=== PATIENT | female | born 1975 | race Caucasian/White ===

== ENCOUNTER 2022-11-30 17:25 | Emergency (ER) | payer OTHER, SELFPAY ==
[2022-11-30 17:40] VITALS: BP 112/69; PULSE 58; RESP 18; TEMP 36.8; O2SAT 100
--- NOTE | 2022-11-30 18:03 | ED.FEMALEGU ---
HPI - Female Genitourinary General Chief complaint: Urogenital-Female Stated complaint: vaginal discharge, rash all over Source: patient and RN notes reviewed Mode of arrival: ambulatory Limitations: no limitations History of Present Illness HPI Narrative: 47 y/o female presented for multiple complaints, which she believes are related to eri. States she has chronic eri for over 10 years, and has eliminated carbs/sugar to reduce flares. States for about 3 weeks she has been treating a vaginal yeast flare with multiple OTC vaginal creams providing no relief. However she reports the large amount of vaginal drainage at the onset has now decreased, and is white and milky. Took a home test for BV which was negative. Denies urinary complaints. Reports itching all over body, including her throat, and states at times her throat feels thick. Reports toe nail fungus after painting her toenails. And reports right chest mole now has redness to the lower aspect of the mole. Denies cough, sob, wheezing, n/v/d/f/c. History of extensive abdominal surgeries. Scheduled with pcp 12/11/22. Related Data Allergies Allergy/AdvReac Type Severity Reaction Status Date / Time Sulfa (Sulfonamide Allergy Mild Rash Verified 11/30/22 18:03 Antibiotics) erythromycin base AdvReac Mild Diarrhea Verified 11/30/22 18:03 Penicillins AdvReac Mild Diarrhea Verified 11/30/22 18:03 PROCHLORPERAZINE EDISYLATE Allergy Mild Rash Uncoded 11/30/22 18:03 PROCHLORPERAZINE MALEATE Allergy Mild Rash Uncoded 11/30/22 18:03 Review of Systems Review of Systems: CONSTITUTIONAL: Denies body aches, fever, chills, or sweats. CARDIOVASCULAR: Denies chest pain, palpitations, or edema. RESPIRATORY: Denies cough or dyspnea. GASTROINTESTINAL: Denies abdominal pain, nausea, vomiting, or diarrhea. GENITOURINARY: Denies dysuria, frequency, urgency, hematuria, flank pain SKIN: Denies rash, itching, or wounds. MUSCULOSKELETAL: Denies back pain or myalgia. [facility] [place] Past Medical History Medical History (Updated 11/30/22 @ 19:33 by Nimisha Santiago, CAR FRAMER) Asthma Degenerative disc disease Endometriosis Factor V Leiden GERD (gastroesophageal reflux disease) H/O vocal cord paralysis History of venous thromboembolism MVP (mitral valve prolapse) Surgical History Surgical History (Updated 11/30/22 @ 19:33 by Nimisha Santiago, CAR FRAMER) Hx of cervical spine surgery Comments At time of signature, I have reviewed and agree with nursing past medical, surgical, social and family history unless otherwise noted. Please see nursing chart for further information. There is no relevant family history pertinent to the presenting complaint Exam Narrative: GENERAL: Well-appearing and in no acute distress. HEAD: Normocephalic EYES: EOMI. . ENT: Mucous membranes pink and moist. No apparent oral eri. Airway patent. NECK: Normal AROM. Supple. CHEST: No respiratory distress. Clear to auscultation. Speaks full sentences. HEART: Regular rate and rhythm. ABDOMEN: Soft, nontender, nondistended, normal active bowel sounds. No CVA tenderness MUSCULOSKELETAL: No bony tenderness. Left toe 5th digit with minimal yellowing to the distal nail edge c/w fungus. SKIN: Warm, dry, right chest mole brown and regular approx0.5cm diameter, pink papules to inferior aspect. NEURO: No focal deficits. Alert and oriented x3. Gait steady. Course Course Emergency Course: Patient is aware of diagnosis, understands and agrees to treatment plan. Anticipatory guidance given. Patient agrees to follow-up as directed and is aware of reasons to seek care at the emergency department. Portions of this record may have been created with voice recognition software Level of Care: Express Care Visit Vital Signs Vital signs: Vital Signs Temperature 98.2 F 11/30/22 17:40 Pulse Rate 58 L 11/30/22 17:40 Respiratory Rate 18 11/30/22 17:40 Blood Pressure 112/69 11/30/22 17:40 Pulse Oximetry 100
== END 2022-11-30 18:45 | disposition home or self-care (01) ==
PROVIDERS: Emergency Provider Nurse Practitioner Family; PCP Family Medicine
DX: R10.2 Pelvic and perineal pain (principal); L29.9 Pruritus, unspecified; J45.909 Unspecified asthma, uncomplicated; N80.9 Endometriosis, unspecified; D68.51 Activated protein C resistance; K21.9 Gastro-esophageal reflux disease without esophagitis; I34.1 Nonrheumatic mitral (valve) prolapse; Z86.718 Personal history of other venous thrombosis and embolism
CPT/HCPCS: 99213; G0463

== ENCOUNTER 2023-11-07 14:47 | Emergency (ER) | payer OTHER, SELFPAY ==
--- NOTE | ~2023-11-07 | XR_ITS ---
XR chest 2V Ordering provider: Miranda Jain NP History: 48 years Female with . non productive cough with chest tightnessfor about 1week . Comparison: August 19, 2007 FINDINGS: MEDIASTINUM: The cardiac silhouette is not enlarged. LUNGS: No infiltrates, effusions or pneumothorax. OTHER: No free air under the diaphragm. IMPRESSION: No acute cardiopulmonary pathology. Reviewed, dictated and finalized at location A.
[2023-11-07 14:57] VITALS: BP 113/66; PULSE 61; RESP 16; TEMP 36.7; O2SAT 100
--- NOTE | 2023-11-07 15:05 | ED.URI ---
HPI - URI/Sore Throat General Chief Complaint: Upper Respiratory Infection Stated Complaint: chest tightness, sore joints, fever Time Seen by Provider: 11/07/23 15:05 Source: patient Mode of arrival: ambulatory Limitations: no limitations History of Present Illness HPI Narrative: 48-year-old female presents with complaint of nasal congestion, sinus pressure, pain to jaw which patient states is related to sinus pain. Patient also reports mild cough, chest tightness radiating between shoulder blades. Patient reports chest tightness is related to congestion that she cannot cough off. Symptoms for 5 days. Denies shortness of breath. Has been taking [id number] Mucinex with no relief of symptoms. Intermittent fevers, highest 103 F. denies nausea vomiting diarrhea. Patient complaining of body aches. Reports chronic body aches. Has been seen her primary care physician for joint pain and muscle aches. Labs have been normal. Was also seen approximately 4 years ago for joint pain and was told had osteoarthritis. All systems reviewed and negative except as noted above. Related Data Home Medications Medication Instructions Recorded Confirmed albuterol sulfate 90 mcg/actuation 2 puff inhalation PRN PRN 11/07/23 11/07/23 aerosol inhaler Shortness Of Breath Or Wheezing fluconazole 100 mg tablet 100 mg PO DAILY 11/07/23 11/07/23 ibuprofen 600 mg tablet 600 mg PO TID 11/07/23 11/07/23 mometasone-formoterol HFA 200 2 puff inhalation DAILY 11/07/23 11/07/23 mcg-5 mcg/actuation aerosol inhaler (Dulera) Allergies Allergy/AdvReac Type Severity Reaction Status Date / Time erythromycin base AdvReac Intermediate Diarrhea Verified 11/07/23 14:54 Penicillins AdvReac Intermediate Diarrhea Verified 11/07/23 14:54 Sulfa (Sulfonamide AdvReac Mild Rash Verified 11/07/23 14:54 Antibiotics) PROCHLORPERAZINE EDISYLATE AdvReac Mild Rash Uncoded 11/07/23 14:54 PROCHLORPERAZINE MALEATE AdvReac Mild Rash Uncoded 11/07/23 14:54 Review of Systems Review of Systems: CONSTITUTIONAL: Reports fever, chills, or sweats. EYES: Denies visual changes, redness, or discharge. ENT: reports rhinorrhea, congestion. Denies sore throat, or otalgia. CARDIOVASCULAR: Denies chest pain, palpitations, or edema. RESPIRATORY: reports cough. Denies dyspnea. GASTROINTESTINAL: Denies abdominal pain, nausea, vomiting, or diarrhea. GENITOURINARY: Denies dysuria or hematuria. SKIN: Denies rash or itching. MUSCULOSKELETAL: Denies back pain, joint pain, or myalgia. NEUROLOGIC: Denies headache, numbness, or weakness. PSYCHIATRIC: Denies anxiety or depression. All other systems reviewed are negative, except as documented in HPI. [facility] Past Medical History Medical History (Updated 11/07/23 @ 16:14 by Miranda Jain, ANALILIA) Asthma Degenerative disc disease Endometriosis Factor V Leiden GERD (gastroesophageal reflux disease) H/O vocal cord paralysis History of venous thromboembolism MVP (mitral valve prolapse) Surgical History Surgical History (Updated 11/30/22 @ 19:33 by Nimisha Santiago, SCARLETT) Hx of cervical spine surgery Comments At time of signature, agree with nursing past medical, surgical, social and family history. There is no relevant family history pertinent to the presenting complaint. Exam Narrative: GENERAL: This is a well-nourished, well-developed patient, ill-appearing but in no acute distress. HEAD: normocephalic, atraumatic. EYES: PERRL. Sclera clear/white. Vision is grossly intact. EARS: External ears normal, auditory canals clear and without drainage, TMs normal without perforation. Hearing grossly intact. NOSE: External nose normal with Nasal congestion, erythema to bilateral nares without Significant swelling THROAT: Mucous membranes moist, mild erythema, clear postnasal drainage NECK: Neck supple, non-tender without lymphadenopathy, masses or thyromegaly. CARDIOVASCULAR: Regular rate and rhythm without murmurs, gall
[2023-11-07 15:36] LABS: EDCOVIDSCREEN Negative (Negative); EDINFLUASCREEN Negative (Negative); EDINFLUBSCREEN Negative (Negative)
--- NOTE | 2023-11-07 15:49 | ECG_ITS ---
Test Date: 2023-11-07 16:04:53 Measurements Intervals [place] Rate: 59 P: 69 CT: 129 QRS: 49 QRSD: 83 T: 42 QT: 412 QTc: 410 Interpretive Statements SINUS BRADYCARDIA LOW QRS VOLTAGE IN PRECORDIAL LEADS BASELINE ARTIFACT- II, III, AVF BORDERLINE ECG No previous ECG available for comparison Electronically Signed On 11-08-2023 07:58:20 CDT by Isaias Lowe D.O.
== END 2023-11-07 16:13 | disposition home or self-care (01) ==
PROVIDERS: Emergency Provider Nurse Practitioner Family; PCP Physician Assistant
DX: J01.90 Acute sinusitis, unspecified (principal); M25.50 Pain in unspecified joint; Z20.822 Contact with and (suspected) exposure to COVID-19; J45.909 Unspecified asthma, uncomplicated; N80.9 Endometriosis, unspecified; K21.9 Gastro-esophageal reflux disease without esophagitis; D68.51 Activated protein C resistance; I34.1 Nonrheumatic mitral (valve) prolapse; M19.90 Unspecified osteoarthritis, unspecified site; Z86.718 Personal history of other venous thrombosis and embolism
CPT/HCPCS: 71046; 87426; 87804; 93005; 99213; G0463

== ENCOUNTER 2025-01-01 08:32 | Outpatient (CLI) | payer OTHER, SELFPAY ==
--- NOTE | ~2025-01-01 | MR_ITS ---
EXAMINATION: MR knee RT wo con DATE: 01/01/2025 09:10 INDICATION: Sprain of the lateral collateral ligament of the right knee TECHNIQUE: Magnetic resonance imaging (MRI) of the right knee was performed without intravenous contrast. Sequences included coronal PD-weighted FSE, coronal PD-weighted FS FSE, sagittal T2-weighted FSE, sagittal PD-weighted FS FSE and axial PD weighted fat saturated FSE. COMPARISON: None. FINDINGS: Medial compartment: Medial meniscus is normal. Shallow chondral surface irregularity along the anterior weightbearing medial femoral condyle. Remaining cartilage the medial compartment is normal. Lateral compartment: Complex lateral meniscal tear including a medially displaced bucket-handle flap which extends anteroposteriorly along side the anterior cruciate ligament with decrease cross-sectional area of the nondisplaced portion of the meniscal body and with additional secondary tear planes at the nondisplaced portion of the posterior horn. Partial-thickness chondral ulceration along the weightbearing lateral femoral condyle with deep fissuring and minimal underlying subarticular edema-like signal change at the central weightbearing aspect of the lateral femoral condyle. Additional deep or chondral ulceration with underlying mild cortical irregularity and tiny focus of subarticular edema-like signal change at the posterior weightbearing lateral femoral condyle and along the posterior rim of the lateral tibial plateau. Patellofemoral compartment: Deep chondral fissure without degenerative subchondral changes at the central aspect of the medial patellar facet. Trochlear cartilage is normal. Ligaments and tendons: Anterior and posterior cruciate ligaments are normal. The medial collateral ligament and fibular collateral ligament complex are normal. The extensor mechanism is normal. The visualized medial and lateral hamstring tendons as well as the iliotibial band are normal. Fluid: Physiologic amount of fluid in the joint space. No intra-articular loose osteochondral bodies identified. There are however a couple 1.2 cm and 4 mm osteochondral bodies within a large ganglion cyst extending 3.7 cm medial to lateral located posterior to the medial compartment and anterior to the semim embranosus tendon and measuring 1.4 cm AP and 2.5 cm craniocaudally. Osseous/other: Bone alignment is normal. No fracture or pathologic marrow replacing process. IMPRESSION: 1. Complex lateral meniscal tear including a displaced bucket-handle flap. 2. Mild to moderate osteoarthritis with moderate and high-grade chondromalacia in the lateral compartment and mild osteoarthritis in the medial and patellofemoral compartments. 3. Stabilizing ligaments of the knee are normal. 4. Couple osteochondral bodies within a moderate-sized ganglion cyst positioned posterior to the medial compartment. Reviewed, dictated and finalized at location A. ES DIRECTOR IMPRESSION: 1. Complex lateral meniscal tear including a displaced bucket-handle flap. 2. Mild to moderate osteoarthritis with moderate and high-grade chondromalacia in the lateral compartment and mild osteoarthritis in the medial and patellofem oral compartments. 3. Stabilizing ligaments of the knee are normal. 4. Couple osteochondral bodies within a moderate-sized ganglion cyst positioned posterior to the medial compartment.
== END 2025-01-01 08:33 | disposition home or self-care (01) ==
PROVIDERS: PCP Nurse Practitioner Family; Visit Provider Nurse Practitioner Family
DX: S83.421A Sprain of lateral collateral ligament of right knee, initial encounter (principal); X58.XXXA Exposure to other specified factors, initial encounter
CPT/HCPCS: 73721